=== PATIENT | female | born 1960 | race African-American/Black ===

== ENCOUNTER 2016-07-17 09:20 | Emergency (ER) | payer MEDICARE, OTHER ==
[2016-07-17] MEDS ORDERED: Ondansetron HCl/PF 4 MG/2 ML Vial ONE ×3 (10:09→14:12)
--- NOTE | 2016-07-17 10:26 | RAD ---
AP VIEW CHEST: HISTORY: Epigastric pain. DATE: 07/17/16. COMPARISON: Comparison is made to previous exam from 01/22/16. FINDINGS: AP view chest demonstrates mild cardiomegaly. Mild pulmonary vascular congestion is seen. No evide nce of effusions, pneumonia, or pneumothorax is seen. The left upper extremity endovascular dialysi s vascular stent is in place. IMPRESSION: Unremarkable AP view chest. POS: [facility]
[2016-07-17 10:52] LABS: #Basophils 0.1 thou/uL (0.0-0.2); #Eosinphils 0.2 thou/uL (0.0-0.7); #Lymphocytes 1.4 thou/uL (1.20-3.40); #Monocytes 0.7 thou/uL (0.11-0.59); #Neutrophils 4.3 thou/uL (1.40-6.50); %Basophils 1.1 % (0.0-1.0); %Eosinophils 3.7 % (0.0-10.0); %Lymphocytes 20.8 % (21.0-51.0); %Monocytes 9.9 % (0.0-10.0); Hematocrit 34.5 % (36.0-47.0); Mean Platelet Volume 7.9 fL (7.4-10.4); Red Blood Cell (RBC) Count 3.69 mill/uL (4.20-5.40); White Blood Cell (WBC) Count 6.6 thou/uL (4.8-10.8)
[2016-07-17 10:59] LABS: Prothrombin Time 12.8 SEC (12.0-14.7)
[2016-07-17 11:02] LABS: ALT (SGPT) 15 U/L (0-55); AST (SGOT) 17 U/L (5-34); Alkaline Phosphatase 114 U/L (40-150); Amylase 60 U/L (25-125); Anion Gap 18 mmol/L (10-20); BUN (Urea Nitrogen) 48 mg/dL (9.8-20.1); Bilirubin, Total 0.7 mg/dL (0.2-1.2); Calc. Creatinine Clearance 0 mL/min (70-130); Carbon Dioxide 26 mmol/L (22-29); Chloride 99 mmol/L (98-107); Estimated GFR-MDRD 6; Globulin 3.7 g/dL (2.4-3.5); Lipase 4 U/L (8-78); Magnesium 2.3 mg/dL (1.6-2.6); Phosphorus 3.7 mg/dL (2.3-4.7)
[2016-07-17 11:05] LABS: Troponin I 0.018 ng/mL (< 0.028)
--- NOTE | 2016-07-17 12:18 | ERRECORD ---
[facility] EMERGENCY RECORD HPI ABDOMINAL PAIN (09:47 JROB) CHIEF COMPLAINTS: Patient presents for evaluation of abdominal pain. HISTORIAN: History provided by patient, 56 year old female with history of ESRD on HD (M,W,F), cirrhosis, HTN, presents with upper abdominal pain, nausea, back pain. Went to all her HD appointments last week. She attributes back pain to "getting to cold", aggravating her arthritis. She did not take any of her Rx meds today. LOCATION FEMALE: Symptoms are generalized. SEVERITY: Current severity of pain rated as 10/10. ASSOCIATED WITH FEMALE: Associated with chills, No associated constipation, No associated diarrhea, No associated fever, Associated with nausea, No associated trauma, No associated urinary tract infection signs or symptoms, No associated vomiting. RELIEVED BY: Patient's condition relieved by nothing. EXACERBATED BY: Patient's condition exacerbated by nothing. ROS (09:49 JROB) CONSTITUTIONAL: Historian reports chills, denies fever. EYES: Historian denies vision changes. ENT: Historian denies sore throat. CARDIOVASCULAR: Historian denies syncope. RESPIRATORY: Historian reports cough, denies shortness of breath. GI: Historian reports abdominal pain, reports nausea, denies vomiting. GENITOURINARY FEMALE: Historian denies dysuria. MUSCULOSKELETAL: Historian reports arthralgias, reports back pain. SKIN: Historian denies rash. NEUROLOGIC: Historian denies headache. ALLERGIC/IMMUNOLOGIC: Historian denies frequent infections. NOTES: All systems reviewed, negative except as described above. PAST MEDICAL HISTORY MEDICAL HISTORY: Past medical history includes cardiac history, congestive heart failure, Past medical history includes pulmonary disease, chronic obstructive pulmonary disease, Flu vaccine up to date, Tetanus immunization up to date, Pneumococcal vaccine up to date, Past medical history includes gastrointestinal disease, gastroesophageal reflux disease, Notes: DIALYSIS M,W,F INSOMNIA, Past medical history includes gynecologic history, ectopic , Past medical history includes musculoskeletal disorder, chronic back pain, Notes: kidney failure, dialysis 3 times a week, Past medical history includes history of hypertension, which has been treated. verified 07/17/16. (10:04 CAWO) FEMALE SURGICAL HISTORY: left arm dialysis shunt, tubal , Surgical history of appendectomy. Nose Sx. verified 07/17/16. (10:04 CAWO) &a-1R&a+25V*p+0X*w0767G*c202B*c15G*c2P*p-0X&a-25V&a+1R Name: Sarah Tompkins : 1960 F56 MedRec: [id number] AcctNum: [id number] Prepared: Daniela Jul 17, 2016 19:50 by Interface Page 1 of 5 pMD [facility] EMERGENCY RECORD PSYCHIATRIC HISTORY: No previous psychiatric history. (10:04 CAWO) SOCIAL HISTORY: Patient denies alcohol use, Patient denies drug use, Patient currently uses tobacco, smokes cigarettes, 10 CIGARETTES A DAY,. verified 07/17/16. (10:04 CAWO) NOTES: Nursing records reviewed, Agree with nursing records, Medication list reviewed. (09:52 JROB) KNOWN ALLERGIES acetaminophen (Unconfirmed): Reaction: Nausea hydrocodone bitartrate (Unconfirmed): Reaction: Nausea No Known Allergies (Unconfirmed) No Known Drug Allergies CURRENT MEDICATIONS pantoprazole: TABLET, DELAYED RELEASE (ENTERIC COATED) : Strength - 40 mg : ORAL Patient Dose: 40 mg Oral once a day. (09:29 CKNU) carvedilol: TABLET : Strength - 25 mg : ORAL Patient Dose: 25 mg Oral 2 times a day. (09:29 CKNU) cloNIDine HCl: TABLET : Strength - 0.1 mg : ORAL Patient Dose: 0.1 mg Oral 3 times a day. (09:29 CKNU) hydrALAZINE: TABLET : Strength - 50 mg : ORAL Patient Dose: 50 mg Oral 3 times a day. (09:29 CKNU) benazepril: TABLET : Strength - 20 mg : ORAL Patient Dose: 20 mg Oral 2 times a day. (09:29 CKNU) Nephro-Kane: TABLET : ORAL Patient Dose: ONE tab(s) Oral once a day. (09:29 CKNU) hydrOXYzine HCl: TABLET : Strength - 25 mg : ORAL Patient Dose: 25 mg Oral every 6 hours. (09:29 CKNU) Pt poor historian with medication history (09:30 CKNU) VITAL SIGNS VITAL SIGNS: Temp: 99.7 (Oral), Pain: 10, Time: 07/17/2016 09:24. (09:24 CKNU) BP: 197/99, Pulse: 87, Resp: 21, Pain: 10, O2 sat: 98 on Room Air, Time: 07/17/2016 09:39. (09:39 CKNU) BP: 179/101, Pulse: 87, Resp: 22, Pain: 10, O2 sat: 91 on ra, Time: 07/17/2016 10:49. (10:49 CKNU) BP: 197/98, Pulse: 83, Resp: 17, Pain: 10, O2 sat: 94 on 2L, Time: 07/17/2016 10:54. (10:54 CKNU) BP: 199/103, Pulse: 87, Resp: 19, Pain: 8, O2 sat: 94 on 3L, Time: 07/17/2016 11:27. (11:27 CKNU) BP: 182/99, Pulse: 86, Resp: 21, Pain: 8, O2 sat: 93 on ra, Time: &a-1R&a+25V*p+0X*s6772O*c202B*c15G*c2P*p-0X&a-25V&a+1R Name: Sarah Tompkins : 1960 F56 MedRec: [id number] AcctNum: [id number] Prepared: Daniela Jul 17, 2016 19:50 by Interface Page 2 of 5 pMD [facility] EMERGENCY RECORD 07/17/2016 11:42. (11:42 CKNU) BP: 189/104, Pulse: 86, Resp: 15, Pain: 8, O2 sat: 98 on 1L Oxygen, Time: 07/17/2016 11:55. (11:55 CKNU) BP: 173/91, Pulse: 92, Resp: 13, Temp: 98.2, Pain: 7, O2 sat: 97 on RA, Time: 07/17/2016 12:31. (12:31 CKNU) BP: 158/82, Pulse: 95, Resp: 21, Pain: 10, O2 sat: 98 on Room Air, Time: 07/17/2016 13:41. (13:41 CKNU) BP: 170/94, Pulse: 98, Resp: 22, Temp: 98.7 (Oral), Pain: 8, O2 sat: 92 on 2L Oxygen, Time: 07/17/2016 14:30. (14:30 CKNU) PHYSICAL EXAM (09:50 JROB) CONSTITUTIONAL: Vital Signs Reviewed, Patient afebrile, Pulse normal, Blood pressure, hypertensive, Patient appears non toxic, Patient alert and oriented to person, place and time, Nursing notes reviewed. HEAD: Head exam normal, Head exam included findings of head atraumatic. EYES: Eye exam normal, Pupils equally round and reactive to light, Extraocular muscles intact. ENT: Pharynx exam normal, poor dentition. NECK: no cervical adenopathy, no tenderness. RESPIRATORY CHEST: scattered wheeze, no rales or rhonchi. CARDIOVASCULAR: Cardiovascular assessment normal, Cardiovascular exam included findings of heart rate regular rate and rhythm, Heart sounds normal. ABDOMEN FEMALE: Abdominal exam included findings of abdomen tender, to the epigastric region, moderate intensity. BACK: no costovertebral angle tenderness. UPPER EXTREMITY: Motor strength normal, Sensation intact, HD graft in LUE with palpable thrill. LOWER EXTREMITY: Lower extremity exam normal, Lower extremity exam included findings of inspection normal, Motor strength normal. NEURO: Neuro exam findings include patient oriented to person, place and time, no focal motor deficits, no focal sensory deficits. SKIN: Skin exam included findings of skin warm, dry. EKG INTERPRETATION (11:58 JROB) 12 LEAD EKG INTERPRETATION: 12 lead EKG interpreted by Emergency Department Physician at time of study, 12 lead EKG shows normal sinus rhythm, Rate (beats per minute): 83, Conduction normal, ST segments normal, T waves, flattened, Leads affected: aVl, [place] normal, Clinical impression:, NSR with LVH, non-specific T wave abnormalities. RADIOLOGYINTERPRETATION (10:57 JROB) CHEST: Films of the chest show, cardiomegaly, Other findings: mild pulmonary vascular congestion, HD endovascular stent in LUE. SOLUTION MAKER: Preliminary review of x-rays by, Radiologist. &a-1R&a+25V*p+0X*m7752X*c202B*c15G*c2P*p-0X&a-25V&a+1R Name: Sarah Tompkins : 1960 F56 MedRec: [id number] AcctNum: [id number] Prepared: Daniela Jul 17, 2016 19:50 by Interface Page 3 of 5 pMD [facility] EMERGENCY RECORD MEDICATION ADMINISTRATION SUMMARY Drug Name: morphine injection, Dose Ordered: 2 mg, Route: IV Push, Status: Given, Time: 14:21 07/17/2016, Drug Name: ondansetron HCl intravenous, Dose Ordered: 4 mg, Route: IV Push, Status: Given, Time: 14:18 07/17/2016, Drug Name: hydrALAZINE injection, Dose Ordered: 10 mg, Route: IV Push, Status: Given, Time: 12:03 07/17/2016, Drug Name: morphine injection, Dose Ordered: 4 mg, Route: IV Push, Status: Given, Time: 10:47 07/17/2016, Drug Name: ondansetron HCl intravenous, Dose Ordered: 4 mg, Route: IV Push, Status: Given, Time: 10:43 07/17/2016, Detailed record available in Medication Service section. DOCTOR NOTES TEXT: Ordered Morphine, Zofran, labs, CXR, EKG. Patient hypertensive, did not take her BP meds today, will continue to monitor following analgesia. (09:52 JROB) Labs show normal WBC, normal LFT's, normal amylase/lipase, anemia, chronic renal failure with mild hyperkalemia. With upper abdominal tenderness, plan for transfer for RUQ ultrasound. Patient has been hypoxic since administration of Morphine for pain, sat is 92% on 3L O2. CXR shows mild pulmonary vascular congestion. Consider HD today, or wait until normal scheduled time tomorrow. Patient remains hypertensive, takes multiple BP meds normally. Will give dose of Hydralazine prior to transfer. (11:50 JROB) Patient accepted by Dr. Purcell, will proceed with transfer. (12:03 JROB) PATIENT STATUS: Patient has improved since arrival to emergency department. (12:03 JROB) PATIENT PLAN: The patient requires a transfer and will be transferred, due to availability of specialty care, Transfer form completed. (12:03 JROB) DATA REVIEWED: Lab data reviewed, Xray data reviewed, Reviewed EKG. (12:03 JROB) PROBLEM LIST No recorded problems DIAGNOSIS DIFFERENTIAL: Based on history, exam and ancillary studies if indicated: Impression: abdominal pain of unclear etiology, Impression: pancreatitis, Impression: gastritis, Impression: GERD, Impression: peptic ulcer disease, Impression: biliary tract disease, Impression: cholelithiasis, Impression: cholecystitis, Impression: ESRD, Electrolyte Abnormality, Anemia, Diagnoses considered are not limited to those documented above. (12:04 JROB) &a-1R&a+25V*p+0X*x4268W*c202B*c15G*c2P*p-0X&a-25V&a+1R Name: Sarah Tompkins : 1960 6 MedRec: [id number] AcctNum: [id number] Prepared: Daniela Jul 17, 2016 19:50 by Interface Page 4 of 5 pMD [facility] EMERGENCY RECORD FINAL: PRIMARY: EPIGASTRIC PAIN, ADDITIONAL: ANEMIA UNSPECIFIED, END STAGE RENAL DISEASE, HYPERKALEMIA, Hypertension, HYPOXEMIA. (12:06 JROB) PRESCRIPTION No recorded prescriptions DISPOSITION PATIENT: Disposition Type: Transfer, Disposition: Transfer to [facility]. (12:06 JROB) Patient left the department. (14:36 CKNU) Mcgraw: JAMIE=MADIE Rey, Naima CKNU=MADIE Quiñones, Herlinda JROB=MD Herman, Man &a-1R&a+25V*p+0X*y6723M*c202B*c15G*c2P*p-0X&a-25V&a+1R Name: Sarah Tompkins : 1960 F56 MedRec: [id number] AcctNum: [id number] Prepared: Daniela Jul 17, 2016 19:50 by Interface Page 5 of 5 pMD MTDD
--- NOTE | 2016-07-17 12:20 | PICIS ---
[facility] EMERGENCY RECORD TRIAGE ([place] Jul 17, 2016 09:27 NU) TRIAGE NOTES: Pt states "I woke up feeling bad. I go to dialysis Monday. My back hurts, I have arthritis and it gets worse in the cold. I have been nausea with stomach pain." denies sick contacts, chest pain, shortness of breath, fever, urinary changes, bowel changes. Reports chills and body aches. Reports 10/10 pain. Pt in no acute distress, talking and laughing with RN. Appears slightly ill. ([place] Jul 17, 2016 09:27 N) PATIENT: NAME: Sarah Tompkins, AGE: 56, GENDER: female, : Mon1960, TIME OF GREET: MonJul 17, 2016 09:21, PREFERRED LANGUAGE: Ukrainian, ETHNICITY: Not or , ECODE BILLING MAP: [facility], SSN: [id number], Zip Code: [address], KG WEIGHT: 48.99, PHONE: , , , PERSON ID: [id number], PCP: [facility]. ([place] Jul 17, 2016 09:27 NU) COMPLAINT: Abdominal Pain. ([place] Jul 17, 2016 09:27 NU) ADMISSION: URGENCY: 3 Urgent, ADMISSION SOURCE: Home, TRANSPORT: CAR, BED: ER -03. ([place] Jul 17, 2016 09:27 N) IMMUNIZATIONS: Flu vaccine up to date, Tetanus immunization up to date, Pneumococcal vaccine up to date. (10:04 CAWO) SIRS SCORING: Heart Rate 55-109 (0), Temp range 96.8-101.1 (0), respiratory rate 12-24 (0), Mental Status altered: no (0), Infection or Suspected Infection: No. (10:04 CAWO) TRIAGE SCREENING: Patient denies suicidal ideation, Patient denies presence of domestic violence. (10:04 CAWO) LMP: LMP: Menopause. (10:04 CAWO) PROVIDERS: TRIAGE NURSE: Herlinda Quiñones RN. ([place] Jul 17, 2016 09:27 CKNU) VITAL SIGNS: Temp 99.7, (Oral), Pain 10, Time 07/17/2016 09:24. (09:24 CKNU) PREVIOUS VISIT ALLERGIES: No Known Drug Allergies. (Daniela Jul 17, 2016 09:27 CKNU) No Known Drug Allergies. (10:04 CAWO) KNOWN ALLERGIES acetaminophen (Unconfirmed): Reaction: Nausea hydrocodone bitartrate (Unconfirmed): Reaction: Nausea No Known Allergies (Unconfirmed) No Known Drug Allergies CURRENT MEDICATIONS pantoprazole: TABLET, DELAYED RELEASE (ENTERIC COATED) : Strength - 40 mg : ORAL Patient Dose: 40 mg Oral once a day. (09:29 CKNU) carvedilol: TABLET : Strength - 25 mg : ORAL Patient Dose: 25 mg Oral 2 times a day. (09: CKNU) cloNIDine HCl: TABLET : Strength - 0.1 mg : ORAL Patient Dose: 0.1 mg Oral 3 times a day. (09:29 CKNU) &a-1R&a+25V*p+0X*k0030W*c202B*c15G*c2P*p-0X&a-25V&a+1R Name: Sarah Tompkins : 1960 F56 MedRec: [id number] AcctNum: [id number] Prepared: Daniela Jul 17, 2016 19:56 by Interface Page 1 of 15 pMD [facility] EMERGENCY RECORD hydrALAZINE: TABLET : Strength - 50 mg : ORAL Patient Dose: 50 mg Oral 3 times a day. (09: CKNU) benazepril: TABLET : Strength - 20 mg : ORAL Patient Dose: 20 mg Oral 2 times a day. (09:29 CKNU) Nephro-Kane: TABLET : ORAL Patient Dose: ONE tab(s) Oral once a day. (09:29 CKNU) hydrOXYzine HCl: TABLET : Strength - 25 mg : ORAL Patient Dose: 25 mg Oral every 6 hours. (09:29 CKNU) Pt poor historian with medication history (09:30 CKNU) VITAL SIGNS VITAL SIGNS: Temp: 99.7 (Oral), Pain: 10, Time: 07/17/2016 09:24. (09:24 CKNU) BP: 197/99, Pulse: 87, Resp: 21, Pain: 10, O2 sat: 98 on Room Air, Time: 07/17/2016 09:39. (09:39 CKNU) BP: 179/101, Pulse: 87, Resp: 22, Pain: 10, O2 sat: 91 on ra, Time: 07/17/2016 10:49. (10:49 CKNU) BP: 197/98, Pulse: 83, Resp: 17, Pain: 10, O2 sat: 94 on 2L, Time: 07/17/2016 10:54. (10:54 CKNU) BP: 199/103, Pulse: 87, Resp: 19, Pain: 8, O2 sat: 94 on 3L, Time: 07/17/2016 11:27. (11:27 CKNU) BP: 182/99, Pulse: 86, Resp: 21, Pain: 8, O2 sat: 93 on ra, Time: 07/17/2016 11:42. (11:42 CKNU) BP: 189/104, Pulse: 86, Resp: 15, Pain: 8, O2 sat: 98 on 1L Oxygen, Time: 07/17/2016 11:55. (11:55 CKNU) BP: 173/91, Pulse: 92, Resp: 13, Temp: 98.2, Pain: 7, O2 sat: 97 on RA, Time: 07/17/2016 12:31. (12:31 CKNU) BP: 158/82, Pulse: 95, Resp: 21, Pain: 10, O2 sat: 98 on Room Air, Time: 07/17/2016 13:41. (13:41 CKNU) BP: 170/94, Pulse: 98, Resp: 22, Temp: 98.7 (Oral), Pain: 8, O2 sat: 92 on 2L Oxygen, Time: 07/17/2016 14:30. (14:30 CKNU) NURSING ASSESSMENT: ABDOMEN (09:41 CKNU) CONSTITUTIONAL: Patient arrives ambulatory, Gait steady, History obtained from patient, Patient appears, generally ill, Patient cooperative, Patient alert, Oriented to person, place and time, Skin warm, Skin dry, Skin normal in color, Mucous membranes pink, Mucous membranes moist, Patient, dressed in multiple layers of clothing, Patient complains of Abdominal pain, Pt reports pain worse with lying down, took some acid reflux medicine which has not helped. No alleviating factors. quality alternates between sharp and dull at epigastric area. pt denies chest pain. reports pain is constant. Reports that she was eating some chips when the pain precipitated. PAIN: dull pain, sharp pain, to the epigastric region, Onset of pain 07/17/2016 0600, &a-1R&a+25V*p+0X*z1254F*c202B*c15G*c2P*p-0X&a-25V&a+1R Name: Sarah Tompkins : 1960 F56 MedRec: [id number] AcctNum: [id number] Prepared: Daniela Jul 17, 2016 19:56 by Interface Page 2 of 15 pMD [facility] EMERGENCY RECORD constant, on a scale 0-10 patient rates pain as 10, Pain level 4 Hurts [place] More, using faces pain scoring., Pain exacerbated by, lying down. ABDOMEN: Abdomen assessment findings include abdomen symmetrical, no discolorations, Abdomen soft, tender, to the epigastric region, to the right upper quadrant, Associated with nausea, no associated vomiting, no associated diarrhea, no associated constipation, Date of last bowel movement: 07/16/2016, Notes: positive wilson's test. no rebound tenderness, negative straight leg raise. LMP: Last menstrual period not applicable due to menopause. GENITOURINARY FEMALE: Associated with urinary complaints, abdominal pain with urination, no associated vaginal discharge, no associated vaginal bleeding. SAFETY: Side rails up, Cart/Stretcher in lowest position, Family at bedside, Call light within reach, Hospital ID band on. NURSING ASSESSMENT: FALL RISK (12:21 CKNU) FALL RISK: Fall risk assessment findings include: no history of falls (0), No bed rest greater than 2 days (0), No use of level of consciousness altering agents with mentation or cognitive changes (0), No change in blood pressure (0), No sensory deficits (0), Impaired mobility (3), No neurologic diagnosis (0), No elimination problems (0), No confusion (0), Total score 3, No risk for fall. NURSING ASSESSMENT: SKIN (12:21 CKNU) SKIN: Skin assessment findings include skin warm, Skin dry, Skin normal in color. CEDRIC SCALE: (4) Sensory perception has no impairment, (4) Skin is rarely moist, (3) Patient walks occasionally, (3) Slightly limited mobility, (2) Nutrition is probably inadequate, (2) Patient has potential problem moving, Cedric Risk Total: 18. NURSING PROCEDURE: BEDSIDE RADIOLOGY (10:22 CCRI) BEDSIDE RADIOLOGY: Bedside radiology performed by cc, Portable chest x-ray performed. NURSING PROCEDURE: BEDSIDE TESTING (11:38 CKNU) PATIENT IDENTIFIER: Patient actively involved in identification process, Patient's identity verified by patient stating name, Patient's identity verified by patient stating date. GLUCOSE: Glucose testing indicated for diabetic patient, Venous blood sample, Result (mg/dl) 146. NURSING PROCEDURE: AMPOULE FILLER (09:41 CAWO) PATIENT IDENTIFIER: Patient actively involved in identification process, Patient's identity verified by patient stating name, Patient's identity verified by hospital ID bracelet. &a-1R&a+25V*p+0X*s2727L*c202B*c15G*c2P*p-0X&a-25V&a+1R Name: Sarah Tompkins : 1960 F56 MedRec: [id number] AcctNum: [id number] Prepared: Daniela Jul 17, 2016 19:56 by Interface Page 3 of 15 [facility] EMERGENCY RECORD AMPOULE FILLER: Patient placed on cloth covered helmet puller, Heart rate: 80, showing normal sinus rhythm, Patient placed on non-invasive blood pressure monitor, with disposable blood pressure cuff applied, Patient placed on continuous pulse oximetry, Adult/pediatric oxisensor applied, Oxygen saturation 96%. SAFETY: Side rails up, Cart/Stretcher in lowest position, Call light within reach, Hospital ID band on. NURSING PROCEDURE: EKG CHART (09:57 CAWO) PATIENT IDENTIFIER: Patient actively involved in identification process, Patient's identity verified by patient stating name, Patient's identity verified by hospital ID bracelet. EK lead EKG performed on the left chest, done by Naima RAMACHANDRAN, first EKG. FOLLOW-UP: After procedure, EKG for interpretation given to Dr. Sutton. SAFETY: Side rails up, Cart/Stretcher in lowest position, Call light within reach, Hospital ID band on. NURSING PROCEDURE: IV (10:17 CAWO) PATIENT IDENITIFIER: Patient actively involved in identification process, Patient's identity verified by patient stating name, Patient's identity verified by hospital ID bracelet. IV SITE 1: IV therapy indicated for hydration, IV therapy indicated for medication administration, IV established, to the right hand, using a 20 gauge catheter, in three attempts, Saline lock established, Flushed with normal saline (mls): 10, Labs drawn at time of placement, labeled in the presence of the patient and sent to lab. FOLLOW-UP SITE 1: After procedure, no drainage at IV site, After procedure, no swelling at IV site, After procedure, no redness at IV site. NURSING PROCEDURE: NURSE NOTES NURSES NOTES: Patient in no apparent distress, Patient resting quietly. (10:49 CKNU) Patient in no apparent distress, Patient resting quietly, Warm blanket given to patient, Patient is awaiting results, Notes: PT TURNED TO RT SIDE FOR COMFORT, DENIES NEEDS AT THIS TIME. (10:54 CKNU) Patient in no apparent distress, Patient resting quietly, Notes: Pt sleeping with lights dimmed awaiting results. (11:27 CKNU) Patient in no apparent distress, Patient resting quietly, Notes: Spoke with pt about transfer to [facility] r/o cholecystits/lithiasis. pt wants to call daughter and speak with her before consenting to transfer. Denies other needs at this time. Pt calling daughter on cell phone. (11:42 CKNU) Patient in no apparent distress, Patient resting quietly. (12:31 CKNU) Patient in no apparent distress, Patient resting quietly, Notes: away from bedside due to code blue. Pt appears in no acute distress. reports she would like something for pain and mucinex. ERMD notified. awaiting EMS at this time. Pt turned to left side for &a-1R&a+25V*p+0X*m3971H*c202B*c15G*c2P*p-0X&a-25V&a+1R Name: Sarah Tompkins : 1960 F56 MedRec: [id number] AcctNum: [id number] Prepared: Daniela Jul 17, 2016 19:56 by Interface Page 4 of 15 pMD [facility] EMERGENCY RECORD comfort and to prevent ulcers. (13:45 CKNU) Notes: Called EMS, no trucks available at this time. still waiting for transport. will send a truck as soon as one becomes available. (14:01 CKNU) VITAL SIGNS: BP: 179, / 101, Pulse: 87, Resp: 22, Pain: 10, O2 sat: 91, on: ra. (10:49 CKNU) BP: 197, / 98, Pulse: 83, Resp: 17, Pain: 10, O2 sat: 94, on: 2L. (10:54 CKNU) BP: 199, / 103, Pulse: 87, Resp: 19, Pain: 8, O2 sat: 94, on: 3L, Time: L. (11:27 CKNU) BP: 182, / 99, Pulse: 86, Resp: 21, Pain: 8, O2 sat: 93, on: ra. (11:42 CKNU) BP: 173, / 91, Pulse: 92, Resp: 13, Temp: 98.2, Pain: 7, O2 sat: 97, on: RA. (12:31 CKNU) NURSING PROCEDURE: OXYGEN THERAPY PATIENT IDENTIFIER: Patient actively involved in identification process, Patient's identity verified by patient stating name, Patient's identity verified by patient stating date. (10:51 CKNU) OXYGEN THERAPY: Oxygen therapy indicated for desaturation, Oxygen saturation 91%, by adult/pediatric oxisensor, single pulse oximetry reading, 2L oxygen given, via nasal cannula applied, Applied by MADIE Pate, via nasal cannula. (10:51 CKNU) Oxygen therapy indicated for desaturation, Oxygen saturation 90%, by adult/pediatric oxisensor, single pulse oximetry reading, 3L oxygen given, via nasal cannula applied, Applied by MADIE Pate, via nasal cannula. (11:27 CKNU) FOLLOW-UP: After procedure, oxygen saturation 98%, After procedure, breath sounds clear, to the right upper lobe, to the left lower lobe, to the right lower lobe, After procedure, breath sounds with wheezing, to the left upper lobe. (10:51 CKNU) After procedure, oxygen saturation 94%. (11:30 CKNU) After procedure, oxygen saturation 97%, Notes: OXYGEN REMOVED AT THIS TIME. (10:51 CKNU) SAFETY: Side rails up, Cart/Stretcher in lowest position, Call light within reach, Hospital ID band on. (10:51 CKNU) NURSING PROCEDURE: TRANSFER (14:21 CAWO) TRANSFER: Reason for transfer need for specialized care, Diagnosis: UPPER ABDOMINAL PAIN, Accepting institution: [facility], Accepting physician: BING, Referring physician: HERMAN, Transported by non-urgent ambulance, Report called to receiving facility, JEAN-PAUL, Provided opportunity to answer questions, Summary of Care printed, Copy of patient record prepared for receiving facility, Status of patient's valuables documented on chart, Medication reconciliation form prepared and sent to receiving facility, Patient consent for transfer signed, Patient given appropriate sedation for safe transport, Family member contacted. &a-1R&a+25V*p+0X*d7480S*c202B*c15G*c2P*p-0X&a-25V&a+1R Name: Sarah Tompkins : 1960 F56 MedRec: [id number] AcctNum: [id number] Prepared: Daniela Jul 17, 2016 19:56 by Interface Page 5 of 15 [facility] EMERGENCY RECORD BELONGINGS: Belongings and valuables with patient upon arrival to the Emergency Department include:, Belongings and valuables with patient at time of admission include:, Belongings remain with patient, Valuables remain with patient. ORDER DETAILS Order Name: Amylase, Status: Active, Time: 09:46 07/17/2016, User: MIAH, - Ordered for: MD Sutton Joseph, - Entered by: MD Sutton Joseph - Daniela Jul 17, 2016 09:46, - Quantity: 1, Order Name: Cardiac Profile w/CKMB & Troponin - I, Status: Active, Time: 09:46 07/17/2016, User: MIAH, - Ordered for: MD Sutton Joseph, - Entered by: MD Suttno Joseph - Daniela Jul 17, 2016 09:46, - Quantity: 1, Order Name: CBC with Differential, Status: Active, Time: 09:46 07/17/2016, User: MIAH, - Ordered for: MD Sutton Joseph, - Entered by: MD Sutton Joseph - Daniela Jul 17, 2016 09:46, - Quantity: 1, Order Name: Comprehensive Metabolic Panel, Status: Active, Time: 09:46 07/17/2016, User: MIAH, - Ordered for: MD Sutton Joseph, - Entered by: MD Sutton Joseph - Daniela Jul 17, 2016 09:46, - Quantity: 1, Order Name: EKG 12 Lead in Emergency Room, Status: Active, Time: 09:46 07/17/2016, User: MIAH, - Ordered for: MD Sutton Joseph, - Entered by: MD Sutton Joseph - Daniela Jul 17, 2016 09:46, - Quantity: 1, Order Name: Lipase, Status: Active, Time: 09:46 07/17/2016, User: MIAH, - Ordered for: MD Sutton Joseph, - Entered by: MD Sutton Joseph - Daniela Jul 17, 2016 09:46, - Quantity: 1, Order Name: Magnesium, Status: Active, Time: 09:47 07/17/2016, User: MIAH, - Ordered for: MD Sutton Joseph, - Entered by: MD Sutton Joseph - Daniela Jul 17, 2016 09:47, - Quantity: 1, Order Name: Phosphorus, Status: Active, Time: 09:47 07/17/2016, User: MIAH, - Ordered for: MD Sutton Joseph, - Entered by: MD Sutton Joseph - Daniela Jul 17, 2016 09:47, - Quantity: 1, Order Name: Protime with INR, Status: Active, Time: 09:46 07/17/2016, User: MIAH, - Ordered for: MD Sutton Joseph, &a-1R&a+25V*p+0X*w7968T*c202B*c15G*c2P*p-0X&a-25V&a+1R Name: Sarah Tompkins : 1960 F56 MedRec: [id number] AcctNum: [id number] Prepared: MonJul 17, 2016 19:56 by Interface Page 6 of 15 [facility] EMERGENCY RECORD - Entered by: MD Sutton Joseph - Sun Jul 17, 2016 09:46, - Quantity: 1, Order Name: SALINE LOCK, Status: Done, Time: 10:23 07/17/2016, User: JAMIE, - Ordered for: MD Sutton Joseph, - Entered by: MD Sutton Joseph - Sun Jul 17, 2016 09:46, - Quantity: 1, Order Name: XR Chest 1 View Portable, Status: Active, Time: 09:46 07/17/2016, User: MIAH, - Ordered for: MD Sutton Joseph, - Entered by: MD Sutton Joseph - Sun Jul 17, 2016 09:46, - Quantity: 1. MEDICATION ADMINISTRATION SUMMARY Drug Name: morphine injection, Dose Ordered: 2 mg, Route: IV Push, Status: Given, Time: 14:21 07/17/2016, Drug Name: ondansetron HCl intravenous, Dose Ordered: 4 mg, Route: IV Push, Status: Given, Time: 14:18 07/17/2016, Drug Name: hydrALAZINE injection, Dose Ordered: 10 mg, Route: IV Push, Status: Given, Time: 12:03 07/17/2016, Drug Name: morphine injection, Dose Ordered: 4 mg, Route: IV Push, Status: Given, Time: 10:47 07/17/2016, Drug Name: ondansetron HCl intravenous, Dose Ordered: 4 mg, Route: IV Push, Status: Given, Time: 10:43 07/17/2016, Detailed record available in Medication Service section. MEDICATION SERVICE hydrALAZINE injection: Order: hydrALAZINE injection (hydralazine HCl) - Dose: 10 mg : IV Push Schedule: Now Ordered by: Man Sutton MD Entered by: Man Sutton MD [place] Jul 17, 2016 11:55 , Acknowledged by: MADIE Pichardo Jul 17, 2016 11:56 Documented as given by: MADIE Pichardo Jul 17, 2016 12:03 Patient, Medication, Dose, Route and Time verified prior to administration. IV SITE #1 IVP, subsequent different medication, Slowly, Awake and alert- acceptable, Catheter placement confirmed via flush prior to administration, IV site without signs or symptoms of infiltration during medication administration, No swelling during administration, No drainage during administration, IV flushed after administration, Correct patient, time, route, dose and medication confirmed prior to administration, Patient advised of actions and side-effects prior to administration, Allergies confirmed and medications reviewed prior to administration, Patient in position of comfort, Side rails up, Cart in lowest position. morphine injection: Order: morphine injection (morphine sulfate) - Dose: 4 mg : IV Push Schedule: Now &a-1R&a+25V*p+0X*f6364U*c202B*c15G*c2P*p-0X&a-25V&a+1R Name: Sarah Tompkins : 1960 F56 MedRec: [id number] AcctNum: [id number] Prepared: Daniela Jul 17, 2016 19:56 by Interface Page 7 of 15 pMD [facility] EMERGENCY RECORD Ordered by: Man Sutton MD Entered by: MD Daniela Cuevas Jul 17, 2016 09:43 , Acknowledged by: MADIE Patten Jul 17, 2016 10:01 Documented as given by: MADIE Pichardo Jul 17, 2016 10:47 Patient, Medication, Dose, Route and Time verified prior to administration. IV SITE #1 IVP, subsequent different medication, Awake and alert- acceptable, Catheter placement confirmed via flush prior to administration, IV site without signs or symptoms of infiltration during medication administration, No swelling during administration, No drainage during administration, IV flushed after administration, Correct patient, time, route, dose and medication confirmed prior to administration, Patient advised of actions and side-effects prior to administration, Allergies confirmed and medications reviewed prior to administration, Patient in position of comfort, Side rails up, Cart in lowest position. morphine injection: Order: morphine injection (morphine sulfate) - Dose: 2 mg : IV Push Schedule: Now Ordered by: Man Sutton MD Entered by: MD Daniela Cue[place] Jul 17, 2016 14:14 , Acknowledged by: MADIE Pichardo Jul 17, 2016 14:15 Documented as given by: MADIE Pichardo Jul 17, 2016 14:21 Patient, Medication, Dose, Route and Time verified prior to administration. IV SITE #1 IVP, subsequent different medication, Slowly, Awake and alert- acceptable, Catheter placement confirmed via flush prior to administration, IV site without signs or symptoms of infiltration during medication administration, No swelling during administration, No drainage during administration, IV flushed after administration, Correct patient, time, route, dose and medication confirmed prior to administration, Patient advised of actions and side-effects prior to administration, Allergies confirmed and medications reviewed prior to administration, Patient in position of comfort, Side rails up, Cart in lowest position, Family at bedside. ondansetron HCl intravenous: Order: ondansetron HCl intravenous (ondansetron HCl) - Dose: 4 mg : IV Push Schedule: Now Ordered by: Man Sutton MD Entered by: MD Daniela Cue[place] Jul 17, 2016 09:43 , Acknowledged by: MADIE Patten Jul 17, 2016 10:01 Documented as given by: MADIE Pichardo Jul 17, 2016 10:43 Patient, Medication, Dose, Route and Time verified prior to administration. IV SITE #1 IVP, initial medication, Slowly, Awake and alert- acceptable, Catheter placement confirmed via flush prior to administration, IV site without signs or symptoms of infiltration during medication administration, No swelling during administration, No drainage during administration, IV flushed after administration, Correct patient, time, route, dose and medication confirmed prior to &a-1R&a+25V*p+0X*j3581X*c202B*c15G*c2P*p-0X&a-25V&a+1R Name: Sarah Tompkins : 1960 F56 MedRec: [id number] AcctNum: [id number] Prepared: Daniela Jul 17, 2016 19:56 by Interface Page 8 of 15 pMD [facility] EMERGENCY RECORD administration, Patient advised of actions and side-effects prior to administration, Allergies confirmed and medications reviewed prior to administration, Patient in position of comfort, Side rails up, Cart in lowest position. ondansetron HCl intravenous: Order: ondansetron HCl intravenous (ondansetron HCl) - Dose: 4 mg : IV Push Schedule: Now Ordered by: Man Sutton MD Entered by: MD Daniela Cuevas Jul 17, 2016 14:14 , Acknowledged by: MADIE Pichardo Jul 17, 2016 14:15 Documented as given by: MADIE Pichardo Jul 17, 2016 14:18 Patient, Medication, Dose, Route and Time verified prior to administration. IV SITE #1 IVP, subsequent different medication, Slowly, Catheter placement confirmed via flush prior to administration, IV site without signs or symptoms of infiltration during medication administration, No swelling during administration, No drainage during administration, IV flushed after administration, Correct patient, time, route, dose and medication confirmed prior to administration, Patient advised of actions and side-effects prior to administration, Allergies confirmed and medications reviewed prior to administration, Patient in position of comfort, Side rails up, Cart in lowest position, Family at bedside. HPI ABDOMINAL PAIN (09:47 JROB) CHIEF COMPLAINTS: Patient presents for evaluation of abdominal pain. HISTORIAN: History provided by patient, 56 year old female with history of ESRD on HD (M,W,F), cirrhosis, HTN, presents with upper abdominal pain, nausea, back pain. Went to all her HD appointments last week. She attributes back pain to "getting to cold", aggravating her arthritis. She did not take any of her Rx meds today. LOCATION FEMALE: Symptoms are generalized. SEVERITY: Current severity of pain rated as 10/10. ASSOCIATED WITH FEMALE: Associated with chills, No associated constipation, No associated diarrhea, No associated fever, Associated with nausea, No associated trauma, No associated urinary tract infection signs or symptoms, No associated vomiting. RELIEVED BY: Patient's condition relieved by nothing. EXACERBATED BY: Patient's condition exacerbated by nothing. ROS (09:49 JROB) CONSTITUTIONAL: Historian reports chills, denies fever. EYES: Historian denies vision changes. ENT: Historian denies sore throat. CARDIOVASCULAR: Historian denies syncope. RESPIRATORY: Historian reports cough, denies shortness of breath. GI: Historian reports abdominal pain, reports &a-1R&a+25V*p+0X*h3928L*c202B*c15G*c2P*p-0X&a-25V&a+1R Name: Sarah Tompkins : 1960 F56 MedRec: [id number] AcctNum: [id number] Prepared: Daniela Jul 17, 2016 19:56 by Interface Page 9 of 15 pMD [facility] EMERGENCY RECORD nausea, denies vomiting. GENITOURINARY FEMALE: Historian denies dysuria. MUSCULOSKELETAL: Historian reports arthralgias, reports back pain. SKIN: Historian denies rash. NEUROLOGIC: Historian denies headache. ALLERGIC/IMMUNOLOGIC: Historian denies frequent infections. NOTES: All systems reviewed, negative except as described above. PAST MEDICAL HISTORY MEDICAL HISTORY: Past medical history includes cardiac history, congestive heart failure, Past medical history includes pulmonary disease, chronic obstructive pulmonary disease, Flu vaccine up to date, Tetanus immunization up to date, Pneumococcal vaccine up to date, Past medical history includes gastrointestinal disease, gastroesophageal reflux disease, Notes: DIALYSIS M,W,F INSOMNIA, Past medical history includes gynecologic history, ectopic , Past medical history includes musculoskeletal disorder, chronic back pain, Notes: kidney failure, dialysis 3 times a week, Past medical history includes history of hypertension, which has been treated. verified 07/17/16. (10:04 CAWO) FEMALE SURGICAL HISTORY: left arm dialysis shunt, tubal , Surgical history of appendectomy. Nose Sx. verified 07/17/16. (10:04 CAWO) PSYCHIATRIC HISTORY: No previous psychiatric history. (10:04 CAWO) SOCIAL HISTORY: Patient denies alcohol use, Patient denies drug use, Patient currently uses tobacco, smokes cigarettes, 10 CIGARETTES A DAY,. verified 07/17/16. (10:04 CAWO) NOTES: Nursing records reviewed, Agree with nursing records, Medication list reviewed. (09:52 JROB) PHYSICAL EXAM (09:50 JROB) CONSTITUTIONAL: Vital Signs Reviewed, Patient afebrile, Pulse normal, Blood pressure, hypertensive, Patient appears non toxic, Patient alert and oriented to person, place and time, Nursing notes reviewed. HEAD: Head exam normal, Head exam included findings of head atraumatic. EYES: Eye exam normal, Pupils equally round and reactive to light, Extraocular muscles intact. ENT: Pharynx exam normal, poor dentition. NECK: no cervical adenopathy, no tenderness. RESPIRATORY CHEST: scattered wheeze, no rales or rhonchi. CARDIOVASCULAR: Cardiovascular assessment normal, Cardiovascular exam included findings of heart rate regular rate and rhythm, Heart sounds normal. ABDOMEN FEMALE: Abdominal exam included findings of abdomen tender, to the epigastric region, moderate intensity. &a-1R&a+25V*p+0X*x9185S*c202B*c15G*c2P*p-0X&a-25V&a+1R Name: Sarah Tompkins : 1960 F56 MedRec: [id number] AcctNum: [id number] Prepared: Daniela Jul 17, 2016 19:56 by Interface Page 10 of 15 pMD [facility] EMERGENCY RECORD BACK: no costovertebral angle tenderness. UPPER EXTREMITY: Motor strength normal, Sensation intact, HD graft in LUE with palpable thrill. LOWER EXTREMITY: Lower extremity exam normal, Lower extremity exam included findings of inspection normal, Motor strength normal. NEURO: Neuro exam findings include patient oriented to person, place and time, no focal motor deficits, no focal sensory deficits. SKIN: Skin exam included findings of skin warm, dry. LAB INTERPRETATION (12:02 JROB) INTERPRETATION: I reviewed the lab results, CBC abnormal, White blood cell count normal, Hemoglobin decreased, Hematocrit decreased, Chemistry abnormal, Potassium elevated, BUN elevated, Creatinine elevated, Magnesium normal, Calcium normal, Cardiac enzymes normal, PT normal, Amylase normal, Lipase abnormal, decreased. EVENTS TRANSFER: Triage to Emergency Emergency Room -03. (Daniela Jul 17, 2016 09:27 CKNU) Removed from Emergency Emergency Room -03. (14:36 CKNU) RADIOLOGYINTERPRETATION (10:57 JROB) CHEST: Films of the chest show, cardiomegaly, Other findings: mild pulmonary vascular congestion, HD endovascular stent in LUE. DATA INTEGRATION ARCHITECT: Preliminary review of x-rays by, Radiologist. EKG INTERPRETATION (11:58 JROB) 12 LEAD EKG INTERPRETATION: 12 lead EKG interpreted by Emergency Department Physician at time of study, 12 lead EKG shows normal sinus rhythm, Rate (beats per minute): 83, Conduction normal, ST segments normal, T waves, flattened, Leads affected: aVl, [place] normal, Clinical impression:, NSR with LVH, non-specific T wave abnormalities. O2SAT INTERPRETATION (09:52 JROB) O2SAT: Single pulse oximetry, Oxygen saturation 98%, on room air, Oxygen saturation interpretation: Normal, No intervention required. DOCTOR NOTES TEXT: Ordered Morphine, Zofran, labs, CXR, EKG. Patient hypertensive, did not take her BP meds today, will continue to monitor following analgesia. (09:52 JROB) Labs show normal WBC, normal LFT's, normal amylase/lipase, anemia, chronic renal failure with mild hyperkalemia. With upper abdominal tenderness, plan for transfer for RUQ ultrasound. Patient has been hypoxic since administration of Morphine for pain, sat is 92% on 3L O2. CXR shows mild pulmonary vascular congestion. Consider HD today, &a-1R&a+25V*p+0X*s6157P*c202B*c15G*c2P*p-0X&a-25V&a+1R Name: Sarah Tompkins : 1960 F56 MedRec: [id number] AcctNum: [id number] Prepared: Daniela Jul 17, 2016 19:56 by Interface Page 11 of 15 pMD [facility] EMERGENCY RECORD or wait until normal scheduled time tomorrow. Patient remains hypertensive, takes multiple BP meds normally. Will give dose of Hydralazine prior to transfer. (11:50 JROB) Patient accepted by Dr. Purcell, will proceed with transfer. (12:03 JROB) PATIENT STATUS: Patient has improved since arrival to emergency department. (12:03 JROB) PATIENT PLAN: The patient requires a transfer and will be transferred, due to availability of specialty care, Transfer form completed. (12:03 JROB) DATA REVIEWED: Lab data reviewed, Xray data reviewed, Reviewed EKG. (12:03 JROB) PROBLEM LIST No recorded problems DIAGNOSIS DIFFERENTIAL: Based on history, exam and ancillary studies if indicated: Impression: abdominal pain of unclear etiology, Impression: pancreatitis, Impression: gastritis, Impression: GERD, Impression: peptic ulcer disease, Impression: biliary tract disease, Impression: cholelithiasis, Impression: cholecystitis, Impression: ESRD, Electrolyte Abnormality, Anemia, Diagnoses considered are not limited to those documented above. (12:04 JROB) FINAL: PRIMARY: EPIGASTRIC PAIN, ADDITIONAL: ANEMIA UNSPECIFIED, END STAGE RENAL DISEASE, HYPERKALEMIA, Hypertension, HYPOXEMIA. (12:06 JROB) DISPOSITION PATIENT: Disposition Type: Transfer, Disposition: Transfer to [facility]. (12:06 JROB) Patient left the department. (14:36 CKNU) PRESCRIPTION No recorded prescriptions IMAGING *MEMORANDUM OF TRANSFER: Image captured from scanner. (12:06 REZE) CONSENTS: Image captured from scanner. (12:06 REZE) *EKG: Image captured from scanner. (12:06 REZE) *SUPPLY CHARGE SHEET: Image captured from scanner. (17:17 CAWO) TRANSFER RECORD (NON-LONG-TERM): Image captured from scanner. (17:18 CAWO) ADMIN DIGITAL SIGNATURE: MD Sutton Joseph. (12:06 JROB) MD Sutton Joseph. (12:06 JROB) &a-1R&a+25V*p+0X*r7639M*c202B*c15G*c2P*p-0X&a-25V&a+1R Name: Sarah Tompkins : 1960 F56 MedRec: [id number] AcctNum: [id number] Prepared: Daniela Jul 17, 2016 19:56 by Interface Page 12 of 15 pMD [facility] EMERGENCY RECORD MD Sutton Joseph. (13:41 JROB) MD Sutton Joseph. (19:48 JROB) RESULTS RADIOLOGY: XR Chest 1 View Portable Observe DT: Daniela Jul 17, 2016 09:48, CXRP AP VIEW CHEST: HISTORY: Epigastric pain. DATE: 07/17/16. COMPARISON: Comparison is made to previous exam from 01/22/16. FINDINGS: AP view chest demonstrates mild cardiomegaly. Mild pulmonary vascular congestion is seen. No evide nce of effusions, pneumonia, or pneumothorax is seen. The left upper extremity endovascular dialysi s vascular stent is in place. IMPRESSION: Unremarkable AP view chest. POS: [facility] . (13:41 JROB) LABORATORY: CBC with Differential Collection DT: Daniela Jul 17, 2016 10:38, White Blood Cell (WBC) Count 6.6 thou/uL, Range (4.8-10.8), *Red Blood Cell (RBC) Count 3.69 - L mill/uL, Range (4.20-5.40), *Hemoglobin 10.5 - L g/dL, Range (12.0-16.0), *Hematocrit 34.5 - L %, Range (36.0-47.0), Mean Corpuscular Volume 93.6 fl, Range (81.0-99.0), Mean Corpuscular Hemoglobin 28.6 pg, Range (27.0-31.0), *Mean Corpuscular HGB CONC 30.6 - L g/dL, Range (32.0-36.0), *RBC Distribution Width 15.9 - H %, Range (11.5-14.5), Platelet Count 214 thou/uL, Range (130-400), Mean Platelet Volume 7.9 fL, Range (7.4-10.4), %Neutrophils 64.5 %, Range (42.0-75.0), *%Lymphocytes 20.8 - L %, Range (21.0-51.0), %Monocytes 9.9 %, Range (0.0-10.0), %Eosinophils 3.7 %, Range (0.0-10.0), *%Basophils 1.1 - H %, Range (0.0-1.0), #Neutrophils 4.3 thou/uL, Range (1.40-6.50), #Lymphocytes 1.4 thou/uL, Range (1.20-3.40), &a-1R&a+25V*p+0X*u4935V*c202B*c15G*c2P*p-0X&a-25V&a+1R Name: Sarah Tompkins : 1960 F56 MedRec: [id number] AcctNum: [id number] Prepared: Daniela Jul 17, 2016 19:56 by Interface Page 13 of 15 pMD [facility] EMERGENCY RECORD *#Monocytes 0.7 - H thou/uL, Range (0.11-0.59), #Eosinphils 0.2 thou/uL, Range (0.0-0.7), #Basophils 0.1 thou/uL, Range (0.0-0.2). (10:58 JROB) Protime with INR Collection DT: Daniela Jul 17, 2016 10:38, See comment below , Anticoagulant? NONE Medical Necessity SUSPECT COAGULOPATHY , Prothrombin Time 12.8 SEC, Range (12.0-14.7), INR-International Normal Ratio 0.9 , ATTENTION: READ CAREFULLY , The, recommended therapeutic ranges for oral anticoagulant treatments are: , , Low Intensity: 1.5 - 2.0 Moderate Intensity: 2.0, - 3.0 High Intensity (1): 2.5 - 3.5 High, Intensity (2): 3.0 - 4.0 CRITICAL: >, 4.0 . (10:59 JROB) Magnesium Collection DT: [place] Jul 17, 2016 10:38, Magnesium 2.3 mg/dL, Range (1.6-2.6), NOTE: Higher values can be expected in females during menses . (11:05 JROB) Phosphorus Collection DT: [place] Jul 17, 2016 10:38, Phosphorus 3.7 mg/dL, Range (2.3-4.7). (11:05 JROB) Lipase Collection DT: [place] Jul 17, 2016 10:38, *Lipase 4 - L U/L, Range (8-78). (11:05 JROB) Amylase Collection DT: [place] Jul 17, 2016 10:38, Amylase 60 U/L, Range (25-125). (11:05 JROB) Comprehensive Metabolic Panel Collection DT: [place] Jul 17, 2016 10:38, Sodium 138 mmol/L, Range (136-145), *Potassium 5.2 - H mmol/L, Range (3.5-5.1), Chloride 99 mmol/L, Range (98-107), Carbon Dioxide 26 mmol/L, Range (22-29), Anion Gap 18 mmol/L, Range (10-20), *BUN (Urea Nitrogen) 48 - H mg/dL, Range (9.8-20.1), *Creatinine 8.02 - H mg/dL, Range (0.6-1.1), Estimated GFR-MDRD 6 , Reference Range for Estimated GFR: Greater than 90, mL/min/1.73 m2 NOTE: The MDRD equation has not been validated for use, with the elderly (over 70 years of age), women, patients with, serious comorbid condition or persons with extremes of body size, muscle, mass, or nutritional status. , Glucose 81 mg/dL, Range (70-105), Calcium 9.0 mg/dL, Range (7.8-10.44), &a-1R&a+25V*p+0X*b9935V*c202B*c15G*c2P*p-0X&a-25V&a+1R Name: Sarah Tompkins : 1960 F56 MedRec: [id number] AcctNum: [id number] Prepared: Daniela Jul 17, 2016 19:56 by Interface Page 14 of 15 pMD [facility] EMERGENCY RECORD Bilirubin, Total 0.7 mg/dL, Range (0.2-1.2), Protein, Total 7.0 g/dL, Range (6.0-8.3), NOTE: Plasma values are generally 0.3 to 0.5 g/dL higher than serum values, due to the presence of fibrinogen. , *Albumin 3.3 - L g/dL, Range (3.5-5.0), *Globulin 3.7 - H g/dL, Range (2.4-3.5), *Alb/Glob Ratio 0.9 - L g/dL, Range (1.2-2.2), Alkaline Phosphatase 114 U/L, Range (40-150), AST (SGOT) 17 U/L, Range (5-34), ALT (SGPT) 15 U/L, Range (0-55). (11:05 JROB) Cardiac Profile w/CKMB & TropI Collection DT: Daniela Jul 17, 2016 10:38, CKMB 0.4 ng/mL, Range (0-6.6), Troponin I 0.018 ng/mL, Range (< 0.028), Reference Range , 0.00 - 0.028 ng/mL Negative 0.029 - 0.29 ng/mL , Indeterminate Greater or Equal to 0.3 ng/mL Strongly suggests IN , . (11:08 JROB) Mcgraw: JAMIE=MADIE Rey, Naima CCRI=RISHABH Quintero, Jarod FIERROU=MADIE Quiñones, Herlinda JROB=MD Herman, Man ROMERO=MADIE Ventura, Lacy &a-1R&a+25V*p+0X*c0658P*c202B*c15G*c2P*p-0X&a-25V&a+1R Name: Sarah Tompkins : 1960 F56 MedRec: [id number] AcctNum: [id number] Prepared: Daniela Jul 17, 2016 19:56 by Interface Page 15 of 15 pMD [facility]TDD
[2016-07-17] MEDS ORDERED: Morphine Sulfate 2 MG/ML SYRINGE ONE (14:12)
== END 2016-07-17 14:25 | disposition short-term general hospital (02) ==
LOC: NAV ERS 09:20
DX: R10.13 Epigastric pain (principal); I12.0 Hypertensive chronic kidney disease with stage 5 chronic kidney disease or end stage renal disease; N18.6 End stage renal disease; D64.9 Anemia, unspecified; E87.5 Hyperkalemia; R09.02 Hypoxemia; K74.60 Unspecified cirrhosis of liver; J44.9 Chronic obstructive pulmonary disease, unspecified; F17.210 Nicotine dependence, cigarettes, uncomplicated
CPT/HCPCS: 71010; 80053; 82150; 82553; 83690; 83735; 84100; 84484; 85025; 85610; 93005; 96374; 96375; 96376; J0360; J2270; J2405

== ENCOUNTER 2016-08-31 16:06 | Emergency (ER) | payer MEDICARE, OTHER ==
[2016-08-31] MEDS ORDERED: Ketorolac Tromethamine 30 MG/ML VIAL ONE (16:59)
== END 2016-08-31 17:26 | disposition home or self-care (01) ==
LOC: NAV ERS 16:06
DX: M54.5 Low back pain (principal); I11.0 Hypertensive heart disease with heart failure; I50.9 Heart failure, unspecified; J44.9 Chronic obstructive pulmonary disease, unspecified; K21.9 Gastro-esophageal reflux disease without esophagitis; F17.210 Nicotine dependence, cigarettes, uncomplicated
CPT/HCPCS: 96372; J1885

== ENCOUNTER 2016-09-23 10:27 | Outpatient (CLI) | payer MEDICARE, OTHER ==
[2016-09-23 11:19] LABS: ALT (SGPT) 6 U/L (0-55); AST (SGOT) 12 U/L (5-34); Albumin 3.6 g/dL (3.5-5.0); Alkaline Phosphatase 101 U/L (40-150); Anion Gap 20 mmol/L (10-20); BUN (Urea Nitrogen) 47 mg/dL (9.8-20.1); Bilirubin, Total 0.8 mg/dL (0.2-1.2); Calc. Creatinine Clearance 0 mL/min (70-130); Carbon Dioxide 26 mmol/L (22-29); Chloride 95 mmol/L (98-107); Estimated GFR-MDRD 5; Globulin 3.7 g/dL (2.4-3.5); Glucose 82 mg/dL (70-105); Potassium 3.7 mmol/L (3.5-5.1); Protein, Total 7.3 g/dL (6.0-8.3); Sodium 137 mmol/L (136-145)
[2016-09-23 12:31] LABS: #Basophils 0.1 thou/uL (0.0-0.2); #Eosinphils 0.3 thou/uL (0.0-0.7); #Lymphocytes 1.1 thou/uL (1.20-3.40); #Monocytes 0.7 thou/uL (0.11-0.59); #Neutrophils 3.3 thou/uL (1.40-6.50); %Basophils 1.6 % (0.0-1.0); %Eosinophils 5.5 % (0.0-10.0); %Lymphocytes 20.3 % (21.0-51.0); %Monocytes 12.2 % (0.0-10.0); %Neutrophils 60.4 % (42.0-75.0); Anisocytosis SLIGHT = 6-15 cells (100X) (0-5/hpf); Hemoglobin 11.2 g/dL (12.0-16.0); Hypochromia SLIGHT = 6-15 cells (100X) (0-5/hpf); MDiff Complete? YES; Mean Corpuscular HGB CONC 30.1 g/dL (32.0-36.0); Mean Corpuscular Hemoglobin 28.4 pg (27.0-31.0); Mean Corpuscular Volume 94.6 fl (81.0-99.0); Mean Platelet Volume 10.1 fL (7.4-10.4); PLT Morphology Comment Appears Adequate; Platelet Count 148 thou/uL (130-400); RBC Distribution Width 13.6 % (11.5-14.5); Red Blood Cell (RBC) Count 3.93 mill/uL (4.20-5.40); Target Cells MODERATE= 6-15 cells (100X) (0-1/hpf); White Blood Cell (WBC) Count 5.4 thou/uL (4.8-10.8)
== END 2016-09-23 10:28 | disposition home or self-care (01) ==
LOC: NAV LAB 10:27
PROVIDERS: ATTEND Physician Assistant Medical
DX: B18.2 Chronic viral hepatitis C (principal)
CPT/HCPCS: 36415; 80053; 85025

== ENCOUNTER 2016-10-03 10:55 | Outpatient (CLI) | payer MEDICARE, OTHER ==
[2016-10-03 12:25] LABS: ALT (SGPT) 8 U/L (0-55); AST (SGOT) 14 U/L (5-34); Albumin 3.4 g/dL (3.5-5.0); Alkaline Phosphatase 106 U/L (40-150); Anion Gap 20 mmol/L (10-20); BUN (Urea Nitrogen) 44 mg/dL (9.8-20.1); Bilirubin, Total 0.8 mg/dL (0.2-1.2); Calc. Creatinine Clearance 0 mL/min (70-130); Calcium 9.1 mg/dL (7.8-10.44); Carbon Dioxide 26 mmol/L (22-29); Chloride 93 mmol/L (98-107); Estimated GFR-MDRD 5; Globulin 3.9 g/dL (2.4-3.5); Glucose 83 mg/dL (70-105); Potassium 3.9 mmol/L (3.5-5.1); Protein, Total 7.3 g/dL (6.0-8.3); Sodium 135 mmol/L (136-145)
[2016-10-03 14:01] LABS: #Basophils 0.1 thou/uL (0.0-0.2); #Eosinphils 0.3 thou/uL (0.0-0.7); #Lymphocytes 1.2 thou/uL (1.20-3.40); #Monocytes 0.5 thou/uL (0.11-0.59); %Basophils 1.5 % (0.0-1.0); %Eosinophils 5.4 % (0.0-10.0); %Lymphocytes 24.1 % (21.0-51.0); %Monocytes 10.5 % (0.0-10.0); %Neutrophils 58.5 % (42.0-75.0); Hemoglobin 11.4 g/dL (12.0-16.0); Mean Corpuscular HGB CONC 30.9 g/dL (32.0-36.0); Mean Corpuscular Hemoglobin 27.5 pg (27.0-31.0); Mean Platelet Volume 9.3 fL (7.4-10.4); Platelet Count 134 thou/uL (130-400); RBC Distribution Width 13.2 % (11.5-14.5); Red Blood Cell (RBC) Count 4.16 mill/uL (4.20-5.40); White Blood Cell (WBC) Count 5.1 thou/uL (4.8-10.8)
== END 2016-10-03 10:56 | disposition home or self-care (01) ==
LOC: NAV LAB 10:55
PROVIDERS: ATTEND Physician Assistant Medical
DX: B18.2 Chronic viral hepatitis C (principal)
CPT/HCPCS: 36415; 80053; 85025

== ENCOUNTER 2016-12-02 11:31 | Outpatient (CLI) | payer MEDICARE, OTHER ==
[2016-12-02 12:42] LABS: ALT (SGPT) 8 U/L (8-55); AST (SGOT) 11 U/L (5-34); Albumin 3.6 g/dL (3.5-5.0); Alkaline Phosphatase 106 U/L (40-150); Anion Gap 22 mmol/L (10-20); BUN (Urea Nitrogen) 51 mg/dL (9.8-20.1); Bilirubin, Total 0.8 mg/dL (0.2-1.2); Calc. Creatinine Clearance 0 mL/min (70-130); Calcium 9.1 mg/dL (7.8-10.44); Carbon Dioxide 26 mmol/L (22-29); Chloride 93 mmol/L (98-107); Estimated GFR-MDRD 5; Globulin 4.4 g/dL (2.4-3.5); Glucose 104 mg/dL (70-105); Potassium 3.8 mmol/L (3.5-5.1); Sodium 137 mmol/L (136-145)
[2016-12-02 13:12] LABS: #Eosinphils 0.2 thou/uL (0.0-0.7); #Lymphocytes 1.4 thou/uL (1.20-3.40); #Monocytes 0.3 thou/uL (0.11-0.59); #Neutrophils 3.3 thou/uL (1.40-6.50); %Basophils 0.8 % (0.0-1.0); %Eosinophils 3.1 % (0.0-10.0); %Lymphocytes 26.6 % (21.0-51.0); %Monocytes 5.8 % (0.0-10.0); %Neutrophils 63.7 % (42.0-75.0); Anisocytosis SLIGHT = 6-15 cells (100X) (0-5/hpf); Hemoglobin 10.6 g/dL (12.0-16.0); Hypochromia SLIGHT = 6-15 cells (100X) (0-5/hpf); MDiff Complete? YES; Mean Corpuscular HGB CONC 30.4 g/dL (32.0-36.0); Mean Corpuscular Hemoglobin 26.8 pg (27.0-31.0); Mean Platelet Volume 9.1 fL (7.4-10.4); PLT Morphology Comment Appears Adequate; Platelet Count 145 thou/uL (130-400); RBC Distribution Width 16.1 % (11.5-14.5); Red Blood Cell (RBC) Count 3.96 mill/uL (4.20-5.40); Target Cells SLIGHT = 2-5 cells (100X) (0-1/hpf); White Blood Cell (WBC) Count 5.1 thou/uL (4.8-10.8)
== END 2016-12-02 11:32 | disposition home or self-care (01) ==
LOC: NAVSJIPCSP 11:31
PROVIDERS: ATTEND Physician Assistant Medical
DX: B18.2 Chronic viral hepatitis C (principal)
CPT/HCPCS: 36415; 80053; 85025; 87522

== ENCOUNTER 2017-04-27 17:55 | Emergency (ER) | payer MEDICARE, MEDICAID | END 2017-04-27 18:10 | disposition home or self-care (01) | LOC: NAV ERS 17:55 | DX: H65.02 Acute serous otitis media, left ear (principal); I50.9 Heart failure, unspecified; J44.9 Chronic obstructive pulmonary disease, unspecified; K21.9 Gastro-esophageal reflux disease without esophagitis; I11.0 Hypertensive heart disease with heart failure; F17.210 Nicotine dependence, cigarettes, uncomplicated; G47.30 Sleep apnea, unspecified | CPT/HCPCS: 99282 ==

== ENCOUNTER 2017-05-13 07:00 | Emergency (ER) | payer MEDICARE, OTHER ==
[2017-05-13] MEDS ORDERED: traMADol HCl 50 MG TAB ONE (07:29)
[2017-05-13 08:03] LABS: ALT (SGPT) 7 U/L (8-55); AST (SGOT) 13 U/L (5-34); Albumin 3.8 g/dL (3.5-5.0); Alkaline Phosphatase 170 U/L (40-150); Anion Gap 19 mmol/L (10-20); BUN (Urea Nitrogen) 31 mg/dL (9.8-20.1); Bilirubin, Total 0.6 mg/dL (0.2-1.2); Calc. Creatinine Clearance 0 mL/min (70-130); Calcium 9.6 mg/dL (7.8-10.44); Carbon Dioxide 31 mmol/L (22-29); Chloride 92 mmol/L (98-107); Estimated GFR-MDRD 8; Glucose 88 mg/dL (70-105); Potassium 4.6 mmol/L (3.5-5.1); Protein, Total 7.8 g/dL (6.0-8.3); Sodium 137 mmol/L (136-145)
[2017-05-13 08:04] LABS: CKMB 0.4 ng/mL (0-6.6); Troponin I 0.017 ng/mL (< 0.028)
[2017-05-13 08:09] LABS: Band 5 % (5-11); Eosinophils 4 % (0-10); Hemoglobin 12.6 g/dL (12.0-16.0); Lymphocytes 19 % (21-51); MDiff Complete? YES; Mean Corpuscular HGB CONC 30.3 g/dL (32.0-36.0); Mean Corpuscular Hemoglobin 28.7 pg (27.0-31.0); Mean Corpuscular Volume 94.8 fl (81.0-99.0); Mean Platelet Volume 9.7 fL (7.4-10.4); Monocytes 12 % (0-10); Neutrophil 60 % (42-75); PLT Morphology Comment Appears Decreased; Platelet Count 128 thou/uL (130-400); RBC Distribution Width 14.4 % (11.5-14.5); RBC Morphology Normal; Red Blood Cell (RBC) Count 4.38 mill/uL (4.20-5.40); White Blood Cell (WBC) Count 4.5 thou/uL (4.8-10.8)
[2017-05-13] MEDS ORDERED: Ketorolac Tromethamine 30 MG/ML VIAL ONE (08:41)
--- NOTE | 2017-05-13 08:43 | RAD ---
PA AND LATERAL CHEST: Date: 05/13/17 HISTORY: Chest pain. COMPARISON: 03/16/16. FINDINGS: Heart size is enlarged. No signs of overt failure. There are atherosclerotic changes of the aorta. Noy ngs show some mild chronic change. Left axillary stent is noted. IMPRESSION: Cardiomegaly with chronic lung change. No acute process. POS: [facility]
[2017-05-13] MEDS ORDERED: Ondansetron HCl/PF 4 MG/2 ML Vial ONE (08:47)
== END 2017-05-13 09:18 | disposition home or self-care (01) ==
LOC: NAV ERS 07:00
DX: R07.1 Chest pain on breathing (principal); I11.0 Hypertensive heart disease with heart failure; I50.9 Heart failure, unspecified; J44.9 Chronic obstructive pulmonary disease, unspecified; K21.9 Gastro-esophageal reflux disease without esophagitis; G47.30 Sleep apnea, unspecified
CPT/HCPCS: 71020; 80053; 82553; 84484; 85025; 93005; 94760; 96374; 96375; J1885; J2405

== ENCOUNTER 2017-06-22 09:34 | Emergency (ER) | payer MEDICARE, OTHER ==
[2017-06-22] MEDS ORDERED: Ondansetron ODT 4 MG TAB ONE (09:53)
[2017-06-22] MEDS ORDERED: Ketorolac Tromethamine 30 MG/ML VIAL ONE (09:53)
== END 2017-06-22 10:43 | disposition home or self-care (01) ==
LOC: NAV ERS 09:34
DX: B34.9 Viral infection, unspecified (principal); I13.2 Hypertensive heart and chronic kidney disease with heart failure and with stage 5 chronic kidney disease, or end stage renal disease; N18.6 End stage renal disease; I50.9 Heart failure, unspecified; K74.60 Unspecified cirrhosis of liver; J44.9 Chronic obstructive pulmonary disease, unspecified; K21.9 Gastro-esophageal reflux disease without esophagitis; G47.00 Insomnia, unspecified; F17.210 Nicotine dependence, cigarettes, uncomplicated; Z99.2 Dependence on renal dialysis
CPT/HCPCS: 96372; J1885; Q0162

== ENCOUNTER 2017-11-20 22:58 | Emergency (ER) | payer MEDICARE, OTHER ==
[2017-11-20] MEDS ORDERED: Mag-Al Plus 1200 MG/1200 MG/120 MG/30 ML UDCUP ONE (23:37)
[2017-11-20] MEDS ORDERED: Lidocaine Viscous Sol 2% 15 ml UD Cup ONE (23:37)
[2017-11-20 23:57] LABS: Eosinophils 5 % (0-10); Hemoglobin 10.5 g/dL (12.0-16.0); Lymphocytes 17 % (21-51); MDiff Complete? YES; Mean Corpuscular HGB CONC 30.1 g/dL (32.0-36.0); Mean Corpuscular Volume 89.7 fl (81.0-99.0); Mean Platelet Volume 7.8 fL (7.4-10.4); Monocytes 15 % (0-10); Neutrophil 61 % (42-75); PLT Morphology Comment Appears Adequate; Platelet Count 188 thou/uL (130-400); RBC Distribution Width 15.8 % (11.5-14.5); RBC Morphology Normal; Red Blood Cell (RBC) Count 3.89 mill/uL (4.20-5.40); White Blood Cell (WBC) Count 7.1 thou/uL (4.8-10.8)
[2017-11-21 00:11] LABS: CKMB 0.3 ng/mL (0-6.6); Troponin I 0.032 ng/mL (< 0.028)
[2017-11-21 00:12] LABS: ALT (SGPT) 11 U/L (8-55); AST (SGOT) 15 U/L (5-34); Albumin 4.2 g/dL (3.5-5.0); Alkaline Phosphatase 187 U/L (40-150); Anion Gap 16 mmol/L (10-20); BUN (Urea Nitrogen) 21 mg/dL (9.8-20.1); Bilirubin, Total 0.6 mg/dL (0.2-1.2); CK (CPK) 29 U/L (29-168); Calc. Creatinine Clearance 0 mL/min (70-130); Calcium 9.1 mg/dL (7.8-10.44); Carbon Dioxide 34 mmol/L (22-29); Chloride 93 mmol/L (98-107); Estimated GFR-MDRD 10; Globulin 4.1 g/dL (2.4-3.5); Glucose 81 mg/dL (70-105); Lipase 18 U/L (8-78); Protein, Total 8.3 g/dL (6.0-8.3); Sodium 139 mmol/L (136-145)
== END 2017-11-21 01:00 | disposition home or self-care (01) ==
LOC: NAV ERS 22:58
DX: K29.00 Acute gastritis without bleeding (principal); I13.0 Hypertensive heart and chronic kidney disease with heart failure and stage 1 through stage 4 chronic kidney disease, or unspecified chronic kidney disease; I50.9 Heart failure, unspecified; J44.9 Chronic obstructive pulmonary disease, unspecified; K21.9 Gastro-esophageal reflux disease without esophagitis; Z99.2 Dependence on renal dialysis; G47.00 Insomnia, unspecified; F17.210 Nicotine dependence, cigarettes, uncomplicated; F41.9 Anxiety disorder, unspecified; Z79.899 Other long term (current) drug therapy; N18.9 Chronic kidney disease, unspecified
CPT/HCPCS: 36415; 80053; 82550; 82553; 83690; 84484; 85025; 93005

== ENCOUNTER 2018-01-25 12:35 | Emergency (ER) | payer MEDICARE, OTHER ==
[2018-01-25] MEDS ORDERED: Acetaminophen 325 MG TAB ONE (13:21)
== END 2018-01-25 13:41 | disposition home or self-care (01) ==
LOC: NAV ERS 12:35
DX: S90.122A Contusion of left lesser toe(s) without damage to nail, initial encounter (principal); F41.9 Anxiety disorder, unspecified; F17.210 Nicotine dependence, cigarettes, uncomplicated; K21.9 Gastro-esophageal reflux disease without esophagitis; G89.29 Other chronic pain; M54.9 Dorsalgia, unspecified; I13.2 Hypertensive heart and chronic kidney disease with heart failure and with stage 5 chronic kidney disease, or end stage renal disease; N18.6 End stage renal disease; I50.9 Heart failure, unspecified; Z79.899 Other long term (current) drug therapy; Z99.2 Dependence on renal dialysis; W22.8XXA Striking against or struck by other objects, initial encounter
CPT/HCPCS: 99283

== ENCOUNTER 2018-03-22 10:44 | Emergency (ER) | payer MEDICARE, OTHER ==
[2018-03-22] MEDS ORDERED: Ibuprofen 200 MG TAB ONE (11:02)
== END 2018-03-22 11:12 | disposition home or self-care (01) ==
LOC: NAV ERS 10:44
DX: S86.911A Strain of unspecified muscle(s) and tendon(s) at lower leg level, right leg, initial encounter (principal); S39.82XA Other specified injuries of lower back, initial encounter; J44.9 Chronic obstructive pulmonary disease, unspecified; K21.9 Gastro-esophageal reflux disease without esophagitis; G47.00 Insomnia, unspecified; I13.2 Hypertensive heart and chronic kidney disease with heart failure and with stage 5 chronic kidney disease, or end stage renal disease; I50.9 Heart failure, unspecified; N18.6 End stage renal disease; Z99.2 Dependence on renal dialysis; F41.9 Anxiety disorder, unspecified; Z79.899 Other long term (current) drug therapy; V49.49XA Driver injured in collision with other motor vehicles in traffic accident, initial encounter
CPT/HCPCS: 99283

== ENCOUNTER 2018-06-09 17:16 | Emergency (ER) | payer MEDICARE, OTHER, MEDICAID ==
[2018-06-09] MEDS ORDERED: Acetaminophen 500 MG TAB ONE (17:52)
[2018-06-09 18:25] LABS: Hemoglobin 10.3 g/dL (12.0-16.0); Mean Corpuscular HGB CONC 31.3 g/dL (32.0-36.0); Mean Corpuscular Hemoglobin 28.2 pg (27.0-31.0); Mean Platelet Volume 8.4 fL (7.4-10.4); Platelet Count 187 thou/uL (130-400); RBC Distribution Width 15.3 % (11.5-14.5); Red Blood Cell (RBC) Count 3.64 mill/uL (4.20-5.40); White Blood Cell (WBC) Count 9.2 thou/uL (4.8-10.8)
[2018-06-09 18:29] LABS: Anisocytosis SLIGHT = 6-15 cells (100X) (0-5/hpf); Band 4 % (5-11); Hypochromia SLIGHT = 6-15 cells (100X) (0-5/hpf); Lymphocytes 7 % (21-51); MDiff Complete? YES; Monocytes 6 % (0-10); Neutrophil 83 % (42-75); PLT Morphology Comment Appears Adequate
[2018-06-09 18:30] LABS: ALT (SGPT) 7 U/L (8-55); AST (SGOT) 13 U/L (5-34); Albumin 3.9 g/dL (3.5-5.0); Alkaline Phosphatase 68 U/L (40-150); Anion Gap 23 mmol/L (10-20); BUN (Urea Nitrogen) 48 mg/dL (9.8-20.1); Bilirubin, Total 0.7 mg/dL (0.2-1.2); Calc. Creatinine Clearance 0 mL/min (70-130); Calcium 10.1 mg/dL (7.8-10.44); Carbon Dioxide 26 mmol/L (22-29); Chloride 93 mmol/L (98-107); Estimated GFR-MDRD 7; Globulin 4.2 g/dL (2.4-3.5); Glucose 81 mg/dL (70-105); Potassium 4.4 mmol/L (3.5-5.1); Protein, Total 8.1 g/dL (6.0-8.3); Sodium 138 mmol/L (136-145)
--- NOTE | 2018-06-09 18:43 | RAD ---
PORTABLE CHEST: 06/09/18 HISTORY: Cough and fever. COMPARISON: 05/13/17. FINDINGS/IMPRESSION: Mild cardiomegaly. There is mild vascular congestion. Interstitial prominence may represent mild inte rstitial edema. Right basilar atelectasis and/or infiltrate. POS: [facility]
[2018-06-09] MEDS ORDERED: Piperacillin/Tazobactam 3.375 GM VIAL ONE (18:49)
[2018-06-09] MEDS ORDERED: Sodium Chloride 0.9% 0 ML ONE (18:52)
[2018-06-09] MEDS ORDERED: Sodium Chloride 0.9% 100 ML ONE (19:01)
[2018-06-09] MEDS ORDERED: Sodium Chloride 0.9% 250 ML 250 ML ONE (19:04)
== END 2018-06-09 20:54 | disposition short-term general hospital (02) ==
LOC: NAV ERS 17:16
DX: J18.9 Pneumonia, unspecified organism (principal); J44.9 Chronic obstructive pulmonary disease, unspecified; K21.9 Gastro-esophageal reflux disease without esophagitis; G47.00 Insomnia, unspecified; F41.9 Anxiety disorder, unspecified; I11.0 Hypertensive heart disease with heart failure; I50.9 Heart failure, unspecified; F17.210 Nicotine dependence, cigarettes, uncomplicated; Z79.899 Other long term (current) drug therapy
CPT/HCPCS: 36415; 71045; 80053; 83605; 83880; 85025; 87040; 87804; 96365; 96367; 96375; J1956; J2543; J3370; J7050

== ENCOUNTER 2018-10-28 15:12 | Emergency (ER) | payer MEDICARE, OTHER ==
[2018-10-28] MEDS ORDERED: HYDROcodone/Acetaminophen 5/325 mg Tablet ONE (16:02)
--- NOTE | 2018-10-28 16:15 | RAD ---
3 views left middle finger: 10/28/2018 COMPARISON: None HISTORY: Fall, trauma, pain FINDINGS: No displaced fracture or evidence of dislocation. No radiopaque foreign body or subcutaneou s gas. Mild degenerative change of the distal and proximal interphalangeal joints. IMPRESSION: No acute fracture or dislocation.
--- NOTE | 2018-10-28 16:17 | RAD ---
4 views left knee: 10/28/2018 COMPARISON: None HISTORY: Fall, pain FINDINGS: No fracture or dislocation. No radiopaque foreign body or subcutaneous gas. No knee joint e ffusion noted. IMPRESSION: No acute findings.
== END 2018-10-28 16:40 | disposition home or self-care (01) ==
LOC: NAV ERS 15:12
DX: S63.613A Unspecified sprain of left middle finger, initial encounter (principal); S80.02XA Contusion of left knee, initial encounter; J44.9 Chronic obstructive pulmonary disease, unspecified; K21.9 Gastro-esophageal reflux disease without esophagitis; G47.00 Insomnia, unspecified; I11.0 Hypertensive heart disease with heart failure; I50.9 Heart failure, unspecified; F41.9 Anxiety disorder, unspecified; Z87.891 Personal history of nicotine dependence; Z79.899 Other long term (current) drug therapy; W19.XXXA Unspecified fall, initial encounter

== ENCOUNTER 2019-01-02 08:50 | Emergency (ER) | payer MEDICARE, MEDICAID ==
[2019-01-02] MEDS ORDERED: niCARdipine 20MG In NaCl 20 MG/200 ML BAG ONE (09:45)
--- NOTE | 2019-01-02 09:56 | RAD ---
PORTABLE CHEST: Date: 01/02/19 INDICATION: Headache, confusion. COMPARISON: 06/09/18. FINDINGS/IMPRESSION: Cardiomegaly. Mild vascular congestion. No confluent infiltrate or significant effusion. Mild interst itial edema may be present. POS: [facility]
--- NOTE | 2019-01-02 10:01 | CT ---
CT BRAIN NONCONTRAST: DATE: 01/02/19 TIME: 0929 HOURS HISTORY: 58-year-old female with headache. Dr. Tavera discussed with intracranial hemorrhage by telephone with Dr. Leonel Girard of the [facility] at 0934 hours on 01/02/19. COMPARISON: 06/14/10. FINDINGS: There is a new finding of large intraventricular hematoma, largest at the frontal horn of the left la teral ventricle, with moderate amount throughout the body of the left lateral ventricle, and small am ounts in the trigone and occipital horn of the left lateral ventricle. There is a moderate sized bianka ashley expanding the third ventricle, and a small intraventricular hematoma in the right lateral ventri carine, centered at the foramen of Monro. There is a new finding of moderate dilation of the lateral jaspreet tricles and third ventricle. There is intraventricular hematoma filling the minimally dilated fourth ventricle. The intraventricular hematoma in the left frontal horn is contiguous with an intraaxial he matoma in the anterior portion of the left basal ganglia. At the level of the hematoma expanding and filling the left frontal horn, there is displacement of the anterior aspect of the septum pellucidum to the right of midline by approximately 7-8 mm. Superior to that, the septum pellucidum is shifted t o the right by 4 mm. The calvarium is intact. There are moderate to severe chronic ischemic white mat ter changes in the cerebrum, significantly greater than on the previous CT, which can be due to chron ic hypertension, diabetes mellitus, etc. IMPRESSION: 1. Acute intraventricular hematoma causing obstructive hydrocephalus. 2. The origin is probably an acute hypertensive hemorrhage in the left basal ganglia. CODE CR. JN R
[2019-01-02 10:04] LABS: Anisocytosis SLIGHT = 6-15 cells (100X) (0-5/hpf); Eosinophils 6 % (0-10); Hemoglobin 12.1 g/dL (12.0-16.0); Lymphocytes 20 % (21-51); MDiff Complete? YES; Mean Corpuscular HGB CONC 30.4 g/dL (32.0-36.0); Mean Corpuscular Hemoglobin 27.1 pg (27.0-31.0); Mean Platelet Volume 9.3 fL (7.4-10.4); Monocytes 10 % (0-10); Neutrophil 64 % (42-75); Nucleated RBC 1 % (0); Platelet Count 158 thou/uL (130-400); Platelet Morphology Comment Appears Adequate; RBC Distribution Width 15.2 % (11.5-14.5); Red Blood Cell (RBC) Count 4.48 mill/uL (4.20-5.40); White Blood Cell (WBC) Count 3.9 thou/uL (4.8-10.8)
[2019-01-02 10:16] LABS: INR-International Normal Ratio 1.3; PTT 30.9 SEC (22.9-36.1); Prothrombin Time 16.2 SEC (12.0-14.7)
[2019-01-02 10:53] LABS: ALT (SGPT) 7 U/L (8-55); AST (SGOT) 12 U/L (5-34); Albumin 3.9 g/dL (3.5-5.0); Alkaline Phosphatase 179 U/L (40-150); Anion Gap 23 mmol/L (10-20); BUN (Urea Nitrogen) 62 mg/dL (9.8-20.1); Bilirubin, Total 0.6 mg/dL (0.2-1.2); Calc. Creatinine Clearance 0 mL/min (70-130); Calcium 9.7 mg/dL (7.8-10.44); Carbon Dioxide 26 mmol/L (22-29); Chloride 94 mmol/L (98-107); Estimated GFR-MDRD 6; Globulin 3.5 g/dL (2.4-3.5); Glucose 98 mg/dL (70-105); Potassium 4.2 mmol/L (3.5-5.1); Protein, Total 7.4 g/dL (6.0-8.3); Sodium 139 mmol/L (136-145)
[2019-01-02] MEDS ORDERED: levETIRAcetam 500 MG/5 ML VIAL ONE (11:05)
== END 2019-01-02 10:48 | disposition short-term general hospital (02) ==
LOC: NAV ERS 08:50
DX: I62.9 Nontraumatic intracranial hemorrhage, unspecified (principal); I13.2 Hypertensive heart and chronic kidney disease with heart failure and with stage 5 chronic kidney disease, or end stage renal disease; I50.9 Heart failure, unspecified; N18.6 End stage renal disease; F41.9 Anxiety disorder, unspecified; K21.9 Gastro-esophageal reflux disease without esophagitis; G47.00 Insomnia, unspecified; Z79.899 Other long term (current) drug therapy; Z79.891 Long term (current) use of opiate analgesic; Z99.2 Dependence on renal dialysis
CPT/HCPCS: 70450; 71045; 80053; 83605; 84484; 85025; 85610; 85730; 86850; 86900; 86901; 93005; J1953; 36415; 96365; 96368

== ENCOUNTER 2019-05-25 02:24 | Emergency (ER) | payer MEDICARE, OTHER ==
[2019-05-25] MEDS ORDERED: Acetaminophen 500 MG TAB ONE (03:00)
--- NOTE | 2019-05-25 08:16 | CT ---
PRELIMINARY REPORT/[facility]/EMERGENCY AFTER HOURS PROCEDURE: PROCEDURE INFORMATION: Exam: CT Cervical Spine Without Contrast Exam date and time: 05/25/2019 2:39 AM Age: 59 years old Clinical history: Injury or trauma; Fall; Initial encounter; Blunt trauma; Injury date: 05/25/2019; I njury details: PT states she woke up and got out of bed while sleepy and fell and hit head TECHNIQUE: Imaging protocol: Computed tomography images of the cervical spine without contrast. Radiation optimi zation: All CT scans at this facility use at least one of these dose optimization techniques: automat ed exposure control; mA and/or kV adjustment per patient size (includes targeted exams where dose is matched to clinical indication); or iterative reconstruction. COMPARISON: No relevant prior studies available. FINDINGS: Vertebrae: No acute fracture. Normal alignment. Discs/Spinal canal/Neural foramina: No spinal stenosis. No neural foraminal narrowing. Soft tissues: Unremarkable. Lungs: Lung apices are normal. IMPRESSION: No acute findings. Thank you for allowing us to participate in the care of your patient. Dictated and Authenticated by: Kerwin Storm MD 05/25/2019 2:59 AM Central Time ([place] & [place]) FINAL REPORT I agree with the preliminary report provided. No acute fracture or subluxation is evident. There is reversal of the normal cervical lordosis. The re is advanced degenerative disk disease at C4-5 and C5-6. There is scarring involving the left lung apex. POS: [facility]
--- NOTE | 2019-05-25 08:18 | CT ---
PRELIMINARY REPORT/[facility]/EMERGENCY AFTER HOURS PROCEDURE: PROCEDURE INFORMATION: Exam: CT Head Without Contrast Exam date and time: 05/25/2019 2:37 AM Age: 59 years old Clinical history: Injury or trauma; Fall; Initial encounter; Blunt trauma (contusions or hematomas); Without loss of consciousness; Injury date: 05/25/2019; Injury details: PT states she got out of bed while still sleepy, fell and hit head on dresser TECHNIQUE: Imaging protocol: Computed tomography of the head without contrast. Radiation optimization: All CT sc ans at this facility use at least one of these dose optimization techniques: automated exposure contr ol; mA and/or kV adjustment per patient size (includes targeted exams where dose is matched to clinic al indication); or iterative reconstruction. COMPARISON: No relevant prior studies available. FINDINGS: Brain: Volume loss and chronic small vessel ischemic change. No brain edema. No intracranial hemorrha ge. Ventricles: Normal. No ventriculomegaly. Bones/joints: Unremarkable. No acute fracture. Sinuses: Visualized sinuses are unremarkable. No fluid levels. Mastoid air cells: Visualized mastoid air cells are well aerated. Soft tissues: Unremarkable. IMPRESSION: No acute brain findings. Thank you for allowing us to participate in the care of your patient. Dictated and Authenticated by: Kerwin Storm MD 05/25/2019 2:57 AM Central Time ([place] & [place]) FINAL REPORT I agree with the preliminary report provided. No acute intracranial abnormality demonstrated. POS: [facility]
== END 2019-05-25 03:10 | disposition home or self-care (01) ==
LOC: NAV ERS 02:24
DX: S00.03XA Contusion of scalp, initial encounter (principal); I13.0 Hypertensive heart and chronic kidney disease with heart failure and stage 1 through stage 4 chronic kidney disease, or unspecified chronic kidney disease; I50.9 Heart failure, unspecified; N18.9 Chronic kidney disease, unspecified; E78.5 Hyperlipidemia, unspecified; E78.00 Pure hypercholesterolemia, unspecified; F41.9 Anxiety disorder, unspecified; J44.9 Chronic obstructive pulmonary disease, unspecified; K21.9 Gastro-esophageal reflux disease without esophagitis; F17.220 Nicotine dependence, chewing tobacco, uncomplicated; Z99.2 Dependence on renal dialysis; Z79.899 Other long term (current) drug therapy; W06.XXXA Fall from bed, initial encounter
CPT/HCPCS: 70450; 72125

== ENCOUNTER 2019-08-15 11:39 | Emergency (ER) | payer MEDICARE, OTHER ==
--- NOTE | 2019-08-15 12:22 | RAD ---
Exam: Left wrist 3 views: HISTORY: Pain following an injury COMPARISON: None FINDINGS: Minimal lateral soft tissue swelling over the distal radius and wrist region. No evidence for fracture, dislocation, or other significant acute osseous abnormality. IMPRESSION: Soft tissue swelling without fracture or dislocation. If patient has persistent or worsening wrist pain particularly in the region of the navicular bone, f ollow-up study in 5-7 days versus additional imaging should be considered.
== END 2019-08-15 12:32 | disposition home or self-care (01) ==
LOC: NAV ERS 11:39
DX: M25.432 Effusion, left wrist (principal); M25.532 Pain in left wrist; G89.29 Other chronic pain; I13.0 Hypertensive heart and chronic kidney disease with heart failure and stage 1 through stage 4 chronic kidney disease, or unspecified chronic kidney disease; I50.9 Heart failure, unspecified; N18.9 Chronic kidney disease, unspecified; F41.9 Anxiety disorder, unspecified; E78.5 Hyperlipidemia, unspecified; E78.00 Pure hypercholesterolemia, unspecified; J44.9 Chronic obstructive pulmonary disease, unspecified; F17.220 Nicotine dependence, chewing tobacco, uncomplicated; Z79.891 Long term (current) use of opiate analgesic; Z79.899 Other long term (current) drug therapy

== ENCOUNTER 2020-02-18 10:59 | Emergency (ER) | payer MEDICARE, MEDICAID ==
[2020-02-18] MEDS ORDERED: Acetaminophen 500 MG TAB ONE (11:30)
--- NOTE | 2020-02-18 11:44 | CT ---
Exam: Head CT without contrast HISTORY: Fall. Pain. COMPARISON: 05/25/2019 FINDINGS: Hemorrhage: No intraparenchymal hemorrhage or extra-axial hematoma. Brain parenchyma: Cortical ferrara-white matter differentiation is preserved. No mass effect or midline shift. Basilar cisterns are patent.Stable chronic small vessel ischemic changes white matter. Stable encephalomalacia involving the left caudate nucleus. Ventricular system: Ventricles and sulci are patent and symmetric. Calvarium: Intact. Sinuses and mastoid air cells: Adequate aeration. IMPRESSION: 1. No intracranial post traumatic sequelae.
== END 2020-02-18 11:55 | disposition home or self-care (01) ==
LOC: NAV ERS 10:59
DX: S00.03XA Contusion of scalp, initial encounter (principal); I13.0 Hypertensive heart and chronic kidney disease with heart failure and stage 1 through stage 4 chronic kidney disease, or unspecified chronic kidney disease; N18.9 Chronic kidney disease, unspecified; I50.9 Heart failure, unspecified; K21.9 Gastro-esophageal reflux disease without esophagitis; E78.5 Hyperlipidemia, unspecified; J44.9 Chronic obstructive pulmonary disease, unspecified; F17.220 Nicotine dependence, chewing tobacco, uncomplicated; Z79.899 Other long term (current) drug therapy; W18.30XA Fall on same level, unspecified, initial encounter
CPT/HCPCS: 70450; 93005

== ENCOUNTER 2020-05-18 09:59 | Emergency (ER) | payer MEDICARE, OTHER ==
[2020-05-18] MEDS ORDERED: Ibuprofen 200 MG TAB ONE (10:16)
[2020-05-18] MEDS ORDERED: Acetaminophen 500 MG TAB ONE (10:21)
--- NOTE | 2020-05-18 10:28 | RAD ---
LEFT KNEE 4 VIEWS: Date: 05/18/2020 HISTORY: Injury. Comparison made to left knee films of 10/28/2018. FINDINGS: Today's exam reveals a high-riding patella consistent with patella daisy. There is no evidence of join t effusion. No significant prepatellar soft tissue swelling. No fracture or other osseous abnormality. IMPRESSION: High-riding patella, which is new when compared to prior study. Correlate for patella tendon injury. POS: [facility]
== END 2020-05-18 11:25 | disposition home or self-care (01) ==
LOC: NAV ERS 09:59
DX: S80.02XA Contusion of left knee, initial encounter (principal); S76.102A Unspecified injury of left quadriceps muscle, fascia and tendon, initial encounter; K21.9 Gastro-esophageal reflux disease without esophagitis; E78.5 Hyperlipidemia, unspecified; E78.00 Pure hypercholesterolemia, unspecified; I13.2 Hypertensive heart and chronic kidney disease with heart failure and with stage 5 chronic kidney disease, or end stage renal disease; I50.9 Heart failure, unspecified; N18.6 End stage renal disease; F41.9 Anxiety disorder, unspecified; F17.220 Nicotine dependence, chewing tobacco, uncomplicated; Z79.899 Other long term (current) drug therapy; W19.XXXA Unspecified fall, initial encounter; Y93.01 Activity, walking, marching and hiking